=== PATIENT | male | born 1990 | race Caucasian/White ===

== ENCOUNTER → 2019-01-19 | Outpatient (CLI) | payer OTHER ==
[2019-01-19 13:29] LABS: ESTRADIOL 29.4 PG/ML (<39.8); FOLLICLE STIMULATING HORMONE 4.1 mIU/mL (1.4-18.1); LUTEINIZING HORMONE 3.7 mIU/mL (1.5-9.3)
[2019-01-21 00:06] LABS: SEX HORMONE BINDING GLOBULIN 12.8 nmol/L (16.5-55.9); TESTOSTERONE FREE (DIRECT) 12.5 pg/mL (9.3-26.5)
== END ==
LOC: M SMT 09:22
PROVIDERS: ATTEND Nurse Practitioner Women's Health
DX: E29.1 Testicular hypofunction (principal)